=== PATIENT | female | born 1985 | race Caucasian/White ===

== ENCOUNTER 2019-10-07 08:50 | Emergency (ER) | payer OTHER, SELFPAY ==
--- NOTE | ~2019-10-07 | XR_ITS ---
EXAMINATION: XR ankle LT min 3V DATE: 10/07/2019 09:09 INDICATION: Left ankle pain and swelling. TECHNIQUE: 4 views of left ankle were obtained. COMPARISON: None. FINDINGS: Bone alignment is normal. No fracture. Joint spaces are well maintained. IMPRESSION: 1. Normal left ankle. Reviewed, dictated and finalized at location B. IMPRESSION: 1. Normal left ankle.
[2019-10-07 08:58] VITALS: BP 133/79; PULSE 97; RESP 18; TEMP 36.8; O2SAT 99
--- NOTE | 2019-10-07 08:58 | ED.LOWEXIN ---
HPI - Extremity Injury (Lower) General Chief Complaint: Extremity Injury, Lower Stated Complaint: left ankle pain Time Seen by Provider: 10/07/19 08:58 Source: patient and RN notes reviewed History of Present Illness HPI Narrative: Patient is a 34-year-old female who presents the urgent care with complaints of medial left ankle pain and swelling. Patient states that she got up off the couch last night and immediately felt the pain however she did not have any known fall or trauma. Patient states that she has put ice on the area but has not used any [id number] medication. No other acute complaints. No acute distress noted. Patient had a plan of care. Related Data Home Medications Medication Instructions Recorded Confirmed omeprazole 10/07/19 Review of Systems Review of Systems: Narrative: CONSTITUTIONAL: Denies fever, chills, or sweats. EYES: Denies visual changes, redness, or discharge. ENT: Denies rhinorrhea, congestion, sore throat, or otalgia. CARDIOVASCULAR: Denies chest pain, palpitations, or edema. RESPIRATORY: Denies cough or dyspnea. GASTROINTESTINAL: Denies abdominal pain, nausea, vomiting, or diarrhea. GENITOURINARY: Denies dysuria or hematuria. SKIN: Denies rash or itching. MUSCULOSKELETAL: Reports of left ankle pain NEUROLOGIC: Denies headache, numbness, or weakness. All other systems reviewed are negative, except as documented in HPI. PMFSH Comments At the time of my signature, I reviewed and agree with the nursing past medical, surgical, social, and family history. There is no relevant family history pertinent to the patient complaint. Exam Narrative: Exam Narrative: GENERAL: This is a well-nourished, well-developed patient, in no apparent distress. HEAD: normocephalic, atraumatic. EYES: PERRL. Sclera clear/white. Vision is grossly intact. EARS: External ears normal NOSE: External nose normal with no obvious nasal discharge, nares without redness, no rhinorrhea. THROAT: Mucous membranes moist NECK: Neck supple SKIN: warm, intact with no suspicious lesions or rash, good texture and turgor. NEURO: awake, alert, and oriented to person, place and time. There were no obvious focal neurologic abnormalities. EXTREMITIES: Very mild edema noted to the medial aspect of the left malleolus without any deformity or fracture noted. Mild tenderness over the region. Range of motion exacerbates pain otherwise within normal limits. Positive strong left pedal pulse with capillary refill less than 2 seconds. Course Vital Signs Vital signs: Vital Signs Temperature 98.2 F 10/07/19 08:58 Pulse Rate 97 10/07/19 08:58 Respiratory Rate 18 10/07/19 08:58 Blood Pressure 133/79 10/07/19 08:58 Pulse Oximetry 99 10/07/19 08:58 Temperature 98.2 F 10/07/19 08:58 Pulse Rate 97 10/07/19 08:58 Respiratory Rate 18 10/07/19 08:58 Blood Pressure 133/79 10/07/19 08:58 Pulse Oximetry 99 10/07/19 08:58 Reviewed MDM - Extremity Injury (Lower) MDM Narrative Medical decision making narrative: Reviewed x-ray results with the patient. She is aware the x-ray was normal without any notable fracture or deformity. Swelling and pain is likely related to a ligament injury which will improve over time. Elevate and use ice as well as Tylenol/ibuprofen for comfort and pain. Use an Juan wrap to the left ankle for support. Wear supportive shoe. Follow-up with your PCP within 2 to 5 days or for worsening symptoms or failure to improve. Differential Diagnosis Differential diagnosis: Likely ankle sprain and strain, fracture of femur and ankle fracture Imaging Data Radiologist's impression: [address] [address] XRay Report Signed Patient: Gloria Greenwood : 1985MR#: [id number] Age/Sex: 34 / FAcct:[id number] Loc: [facility] ADM Date: 10/07/[address]: Ordering Physician: Chantale Fairbanks APN Date of Service: 10/07/19 Procedure
--- NOTE | 2019-10-07 09:09 | PC.NURSE ---
PT DECLINED ICE FOR COMFORT AND A WHEELCHAIR TO RADIOLOGY AND PT ROOM
== END 2019-10-07 09:30 | disposition home or self-care (01) ==
PROVIDERS: Emergency Provider Nurse Practitioner Family; PCP Internal Medicine
DX: S93.402A Sprain of unspecified ligament of left ankle, initial encounter (principal); S96.912A Strain of unspecified muscle and tendon at ankle and foot level, left foot, initial encounter; X50.9XXA Other and unspecified overexertion or strenuous movements or postures, initial encounter; K21.9 Gastro-esophageal reflux disease without esophagitis
CPT/HCPCS: 73610; 99213; G0463